=== PATIENT | female | born 1985 | race Caucasian/White ===

== ENCOUNTER 2016-07-18 10:49 | Emergency (ER) | payer MEDICAID, OTHER ==
[~2016-07-18] VITALS: Ht 157.5 cm; Wt 100.0 kg
[2016-07-18 10:58] VITALS: BP 122/73; PULSE 85; RESP 10; O2SAT 100
--- NOTE | 2016-07-18 11:15 | ED.REPORT ---
HPI-Allergic Reaction Date of Service July 18, 2016 ED Provider: Alba Kruger History of Present Illness: lips swelling at night, no medications. using chap sticks, has tried 3 different kinds. no primary care. no breathing difficulties. no coughing on going for 5 days. lips are fine during the day. Happens at night Nursing Notes Stated Complaint: LIP SWELLING/RASH Chief Complaint: General Complaint Nursing Notes Reviewed: Yes Allergies: Coded Allergies: hydromorphone (Verified Adverse Reaction, Intermediate, HOT FLUSH, ) General Time Seen by MD: 11:15 Chief Complaint Other (lip swelling) Hx Obtained From: Patient Onset Occurred: 5 days ago Symptom Duration: Since onset Progression Since Onset: Intermittent Pertinent Negative: Pt denies other symptoms Past Medical History Past Medical History denies Past Surgical History denies Family History grandmother had stoke at "young age" aunt had stroke in 40's Reports: Coronary artery disease, Stroke Smoking History Never Smoker Social History Alcohol Use: Denies alcohol use Drug Use: Denies drug use Other Social History: Occupation work at [employer] 07/18/2016 Ambulatory Status Independent Review of Systems Basic Review of Systems Cardiovascular: No chest pain, No dyspnea on exertion, No orthopnea, No parox noct dyspnea, No palpitations Endocrine: No cold intolerance, No heat intolerance, No weight gain, No weight loss Psychiatric: Normal thought content Physical Exam Initial Vital Signs Vital Signs (First) Date Time Temp Pulse Resp B/P Pulse Ox O2 Delivery O2 Flow Rate FiO2 07/18/16 10:58 36.2 85 10 122/73 100 Initial VS: Reviewed, Vital signs normal Head / Eyes: Atraumatic, Normocephalic, PERRL ENT: Mucous membranes moist, Conjunctiva normal, No scleral icterus Neck: Supple, Non-tender, Full range of motion Abdomen / GI: Soft, Non-tender, No guarding, No rebound, No distention Back: No CVA tenderness Lymphatic: No lymphadenopathy Extremities: Vascular intact, Neuro intact, No swelling, No tenderness Neurologic: Alert, Oriented, Nonfocal Psychiatric: Mood/affect normal, Behavior normal, Normal thought content General/Constitutional: Awake, Alert, No acute distress, Well appearing, Well developed, Well hydrated, Well nourished, Cooperative, Not toxic appearing Respiratory / Chest: Atraumatic, Breath sounds NL, Breath sounds = bilat, No respiratory distress, No rales, No rhonchi, No wheezing Cardiovascular: Heart rate NL, Regular rhythm, Heart sounds NL, No gallop Skin: Atraumatic, Color NL both lips have mild erthyma on edges of lips. No swelling noted at present. no tongue swelling. Re-Eval/Medical Decision Med Decision/Clinical Course 30 year old female presents for 5 days hx of both lips swelling at night. Fine during the day. Was taking ibuprofen initially but stoped 3 days ago. Has had 3 changes of chap stick. No breathing difficulties, no other s/s. No sign of anaphylaxis or urticia. Discharge & Departure Primary Impression: Swelling of both lips Disposition: Home Additional Instructions: Stop all of the chap stick. No over the counter medication except what has been prescribed. Start prednisone 40 mg daily for 3 days then 30 mg daily for 3 days then 20 mg daily for 3 days then 10 mg daily for 3 days. Start allerclear daily for 14 days. Also ranitidine 150 mg in the am and pm for 14 days. Use bactroban to the lips and on the edges of the lips 3 times a day for 7 days. Apply ice to the lips especially right before bedtime and first thing in the morning. The ice needs to have a cloth barrier between the lips and the ice. Need to establish in primary care. REturn with any breathing difficulties or any other concerns. Referrals: Aimee Rodrigues (PCP) EDSupervising Provider for [facility]: Gonzales Broderick MD copies to: Aimee Rodrigues Sue ARNP July 18, 2016 11:15
[2016-07-18 11:54] VITALS: BP 122/73; PULSE 85; RESP 10; O2SAT 100
== END 2016-07-18 11:57 | disposition home or self-care (01) ==
LOC: SED 10:49
DX: R22.0 Localized swelling, mass and lump, head (principal); Z88.5 Allergy status to narcotic agent

== ENCOUNTER 2016-10-01 23:49 | Emergency (ER) | payer OTHER ==
[~2016-10-01] VITALS: Ht 157.5 cm; Wt 104.5 kg
[2016-10-02 00:05] VITALS: BP 123/81; PULSE 68; RESP 16; O2SAT 100
--- NOTE | 2016-10-02 01:25 | ED.REPORT ---
HPI-General Illness Date of Service Oct 02, 2016 ED Provider: Raymond Chandra MD Nursing Notes Stated Complaint: DENTAL PAIN Chief Complaint: Dental Allergies: Coded Allergies: hydromorphone (Verified Adverse Reaction, Intermediate, HOT FLUSH, 10/02/16) General Time Seen by MD: 00:22 Past Medical History Past Medical History denies Past Surgical History denies Family History grandmother had stoke at "young age" aunt had stroke in 40's Reports: Coronary artery disease, Stroke Smoking History Never Smoker Social History Alcohol Use: Denies alcohol use Drug Use: Denies drug use Other Social History: Occupation work at [employer] 07/18/2016 Ambulatory Status Independent Physical Exam Vital Signs Vital Signs Date Time Temp Pulse Resp B/P Pulse Ox O2 Delivery O2 Flow Rate FiO2 10/02/16 00:05 36.7 68 16 123/81 100 Room Air Discharge & Departure Referrals: Aimee Rodrigues (PCP) Raymond Chandra MD Oct 02, 2016 01:25
== END 2016-10-02 02:10 | disposition left against medical advice (07) ==
LOC: SED 23:49
DX: K08.89 Other specified disorders of teeth and supporting structures (principal); Z53.29 Procedure and treatment not carried out because of patient's decision for other reasons